=== PATIENT | male | born 1990 | race Caucasian/White ===

== ENCOUNTER 2019-02-28 13:56 | Inpatient (IN) ==
--- OUTSIDE RECORDS SUMMARY | 2019-02-28 14:00 | External Medical Summary | Continuity of Care Document ---
:1990 Author Name Darya Guerrero, Provider Address Unavailable Unavailable , Care Team Providers Name Role Phone Unavailable Unavailable Unavailable ADITI Guerrero, ERIKA Chiu Unavailable Unavailable Problems Active medical history not documented Allergies and Adverse Reactions Allergy history not documented Medications Medications not documented Procedures Procedures not documented Immunizations Immunizations not documented Plan of Treatment Planned Observations Planned Goals not documented Results No Known Results Results not documented
[2019-02-28] MEDS ORDERED: HALOPERIDOL 5 MG TAB PO STA (14:41)
[2019-02-28] MEDS ORDERED: LORazepam 1 MG TAB PO STA (14:41)
[2019-02-28] MEDS ORDERED: LORazepam 2 MG/4 ML VIAL ONE (15:10)
[2019-02-28] MEDS ORDERED: HALOPERIDOL LACTATE 5 MG/ML 1 ML VIAL ONE (15:10)
[2019-02-28] MEDS ORDERED: LORazepam 2 MG/ML VIAL (IM USE) IM STA (15:11)
[2019-02-28] MEDS ORDERED: HALOPERIDOL LACTATE 5 MG/ML 1 ML VIAL IM STA (15:11)
[2019-02-28 15:23] LABS: Basophils # (auto) 0.05 K/uL (0-0.2); Basophils % (auto) 0.4 %; Eosinophils # (auto) 0.21 K/uL (0-0.5); Eosinophils % (auto) 1.6 %; Hematocrit (blood only) 48.6 % (42-52); Hemoglobin 17.6 g/dL (14.0-18.0); Immature Granulocytes # (auto) 0.04 K/uL (0.00-0.02); Immature Granulocytes % (auto) 0.3 %; Lymphocytes # (auto) 3.07 K/uL (1.2-3.4); Lymphocytes % (auto) 24.1 %; Mean Corpuscular Hgb Conc 36.2 g/dL (32-36); Mean Corpuscular Volume 83.8 fL (80-100); Mean Platelet Volume 11.3 fL (7.4-10.4); Monocytes # (auto) 0.74 K/uL (0.11-0.59); Monocytes % (auto) 5.8 %; Neutrophils # (auto) 8.65 K/uL (1.4-6.5); Neutrophils % (auto) 67.8 %; Platelet Count 297 K/uL (130-400); RDW Coefficient of Variation 14.3 % (11.5-14.5); RDW Standard Deviation 43.8 fL (36.4-46.3); White Blood Count 12.76 K/uL (4.8-10.8)
[2019-02-28 15:39] LABS: Appearance Urine Clear (Clear); Bacteria Urine Automated Negative (Negative); Bilirubin Urine Negative (Negative); Blood Urine Negative (Negative); Cast Urine Automated 0 /lpf (0-5); Color Urine Yellow; Glucose Urine UA Negative (Negative); Ketones Urine Negative (Negative); Leukocyte Esterase Urine Trace (Negative); Nitrite Urine Negative (Negative); Protein Urine Negative (Negative); RBC Urine Automated 0-4 /hpf (0-4); Specific Gravity Urine 1.016 (1.000-1.030); Urobilinogen Urine Negative (Negative); pH Urine 5.5 (4.5-7.5)
[2019-02-28 15:46] LABS: BUN Creatinine Ratio 6.3 (10-20); Calcium 8.8 mg/dl (8.5-10.1); Creatinine Clr Calc Pharmacy 169.5 ml/min; Est GFR (African American) 130.7; Est GFR (Non-African American) 112.8; Potassium 3.5 mmol/L (3.5-5.1)
[2019-02-28 15:47] LABS: Acetaminophen < 2 ug/ml (10-30); Salicylate 3.2 mg/dl (2.8-20)
[2019-02-28 15:51] LABS: Amphetamines+Metham, Urine Neg (Neg); Barbiturates, Urine Neg (Neg); Benzodiazepine, Urine Neg (Neg); Cocaine, Urine Neg (Neg); MDMA (Ecstacy), Urine Neg (Neg); Methadone, Urine Neg (Neg); Opiate, Urine Neg (Neg); Phencyclidine, Urine Neg (Neg)
[2019-02-28 15:58] LABS: Albumin Globulin Ratio 0.9 (0.9-2); Bilirubin,Total 0.4 mg/dl (0.2-1); Globulin 4.3 gm/dl (2.5-4.0); Total Protein 8.3 gm/dl (6.4-8.2)
[2019-02-28] MEDS ORDERED: DIPHTHERIA/TETANUS/PERTUSSIS 0.5 ML SYR/VIAL IM ONE (20:37)
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
--- NOTE | 2019-02-28 23:34 | Emergency Department Note ---
ED Visit Note This case was signed out to me at change of shift. The patient is currently sleeping. When he does wake up, a formal psychiatric evaluation will be performed. The patient is now awake and willing to sign himself in voluntarily. The ED psychiatric disability case manager has met with him. A referral has been made to [facility]. They have no beds available. 0425: The disability case manager has made multiple phone calls looking for an open bed but has been unsuccessful. 0515: The patient has become more agitated. I have ordered a nicotine patch along with 2 mg of sublingual Ativan. 0610: The patient is much more relaxed at this time. The case will be signed out to Dr. Guan at change of shift awaiting bed placement. . : Wrist laceration Qualifiers: Encounter type: initial encounter Laterality: left Qualified Code(s): S61.512A - Laceration without foreign body of left wrist, initial encounter Psychotic disorder Qualifiers: Psychosis type: unspecified psychosis type Qualified Code(s): F29 - Unspecified psychosis not due to a substance or known physiological condition
[2019-03-01] MEDS ORDERED: LORazepam 1 MG TAB ONE (05:12)
[2019-03-01] MEDS ORDERED: NICOTINE 21 MG/24 HR TDSY TD ONE (05:13)
[2019-03-01] MEDS ORDERED: LORazepam 1 MG TAB PO STA ×2 (05:34→11:10)
[2019-03-01] MEDS ORDERED: NICOTINE 21 MG/24 HR TDSY TD SCH (09:00)
--- NOTE | 2019-03-01 14:38 | Emergency Department Note ---
ED Visit Note This patient was signed out to me by Dr. Berman at shift change. He had come in and was here all night after cutting his wrist as a suicidal attempt. he was initially agitated but has been very cooperative is 201 at this point. He did receive some additional Ativan. I when I evaluated him he is always been very cooperative. I talked to him multiple times in the ER. He was starting to get a little anxious again and was given another milligram Ativan. I talked to him at length and and told him that I think that it would be beneficial for him have inpatient treatment and he agrees with this and is willing to come in voluntarily to [facility]. . : Wrist laceration Qualifiers: Encounter type: initial encounter Laterality: left Qualified Code(s): S61.512A - Laceration without foreign body of left wrist, initial encounter Psychotic disorder Qualifiers: Psychosis type: unspecified psychosis type Qualified Code(s): F29 - Unspecified psychosis not due to a substance or known physiological condition
[2019-03-01] MEDS ORDERED: BISMUTH SUBSALICYLATE PER ML OMNICELL CHARGE PO PRN (14:43)
[2019-03-01] MEDS ORDERED: ACETAMINOPHEN 325 MG TAB PO PRN (14:43)
[2019-03-01] MEDS ORDERED: MAGNESIUM HYDROXIDE SUSP 30 ML UDC PO PRN (14:43)
[2019-03-01] MEDS ORDERED: ALUMINUM/MAGNESIUM SUSP 30 ML UDC PO PRN (14:43)
[2019-03-01] MEDS ORDERED: SODIUM CHLORIDE 0.65% NA SOLN 45 ML (OCEAN) PRN (14:43)
[2019-03-01] MEDS ORDERED: LORazepam 1 MG TAB PO PRN (14:43)
[2019-03-01] MEDS ORDERED: HALOPERIDOL LACTATE 5 MG/ML 1 ML VIAL IM PRN (17:01)
[2019-03-01] MEDS ORDERED: GABAPENTIN 1200MG ALCOHOL WITHDRAWAL LOAD PO STA (17:02)
[2019-03-01] MEDS ORDERED: GABAPENTIN 600 MG TAB PO SCH (18:00)
[2019-03-01] MEDS: NICOTINE POLACRILEX 2 MG GUM MT PRN (20:34)
[2019-03-01] MEDS: GABAPENTIN 600 MG TAB PO SCH (23:59)
[2019-03-02] MEDS: GABAPENTIN 600 MG TAB PO SCH ×3 (06:13→21:30)
[2019-03-02] MEDS ORDERED: NICOTINE 21 MG/24 HR TDSY TD SCH (09:00)
[2019-03-02] MEDS: NICOTINE 21 MG/24 HR TDSY TD SCH (09:07)
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
[2019-03-02] MEDS ORDERED: LORazepam 1 MG TAB PO PRN (09:09)
[2019-03-02] MEDS: HALOPERIDOL 5 MG TAB PO PRN ×2 (09:10→19:40)
[2019-03-02] MEDS: NICOTINE POLACRILEX 2 MG GUM MT PRN ×2 (19:09→21:33)
[2019-03-03] MEDS: GABAPENTIN 600 MG TAB PO SCH ×2 (05:15→18:17)
[2019-03-03] MEDS: NICOTINE 21 MG/24 HR TDSY TD SCH (09:06)
[2019-03-03] MEDS: NICOTINE POLACRILEX 2 MG GUM MT PRN ×3 (09:09→18:20)
--- NOTE | 2019-03-03 10:45 | Psychiatric Progress Note ---
Date of Service March 03, 2019 Impression / Recommendations Impression 29-year-old male with polysubstance abuse, alcohol dependence currently in alcohol withdrawal, and a history of depression and ADHD who presented to the ER 02/28/2019 after a suicide attempt by cutting his wrist. He endorses very heavy alcohol use, 16+ alcoholic beverages daily, and although he initially did not want to address his drinking, is now reading the recovery workbook and is thinking about trying to cut back. He also reports chronic problems with agitation and violent behavior, regular marijuana use, and recent methamphetamine use. He is prescribed multiple controlled substances including Adderall and zolpidem, which have been discontinued here due to his addictions issues. Although mood has improved from admission, he remains at risk for suicide if discharged prematurely given his numerous unresolved risk factors, including depression, alcoholism, need for outpatient treatment, involvement of his supports, and a plan for safety after discharge. (1) Suicidal thoughts: 03/02 -Ongoing for the last several years, exacerbated in last several months, multiple failed attempts within last 5 months - suicide precautions in place. -Continue inpatient treatment on a 201 voluntary commitment. There is a backup 302 petition if needed. -Suicide checks for safety. -Encourage group attendance and participation, work on healthy coping skills and discharge safety plan. Present on Admission?: Yes (2) Wrist laceration: -Keep area clean and dry. Use bacitracin as needed. Present on Admission?: Yes (3) Depression: 03/02 - Differential diagnoses: major depressive disorder, bipolar disor colby, psychosis in setting of substance abuse, alcohol abuse vs. alcohol withdrawal, primary psychosis, personality disorder Unable to clearly determine diagnosis as symptoms may or may not be related with substance use - will continue to monitor and attempt to delineate symptoms as patient is further removed from substance use, and manage symptoms as below. Collateral information from friends or family would be helpful as patient is a limited historian, and outpatient records from Dr. Nguyen. 03/03 -outpatient records indicate previous history of major depressive disorder, and today patient reports he has been depressed, and thinks that his drinking is both triggered by depression and also worsens mood. Psychoeducation provided regarding the relationship between alcohol abuse and mood disorders. Although outpatient records indicate he was prescribed oxcarbazepine (for depression?, although it is a mood stabilizer), he states he never picked it up or took the medication as he lost his insurance and could not afford it. -Reviewed ways to optimize mood, including good nutrition, adequate sleep, therapy, and sobriety, as patient notes his mood is better now than it has been in a long time as he has been attending to these things. As mood has improved significantly after just a few days sober, I think it is likely that he has a substance-induced depression, and it is not clear that antidepressant medication is indicated at this time. -Records reviewed from outpatient psychiatrist Dr. Nguyen. Contacted his office to coordinate care and inform him of patient's significant substance abuse, as he has prescribed controlled substances. Spoke with his staff and left him a detailed message regarding concerns about the patient. Present on Admission?: Yes (4) Alcohol abuse: Heavy, daily alcohol use - continue AWSS protocol with gabapentin taper and lorazepam as needed for withdrawal symptoms. Patient contemplative and thinks he would like to stop drinking - would benefit from EtOH rehab post discharge. Brief intervention was offered and accepted Brief interventions include: 1. Assess Readiness to Quit, 2. Advise: Help Patient to Reduce or Abstain from Alcohol, 3. Agree: Set Specific, Feasible Goals, 4. Assist: Anticipate barriers, Problem-Solving Solutions. Social work to 5. Arrange: Referrals to appropriate treatment. Summary of intervention: The patient is in precontemplation stage with regards to transtheoretical model of change. The patient is advised to decrease alcohol consumption due to depressant effects and risk of interactions with prescription medications. The patient agreed to consider options for substance abuse treatment, and will be provided with recovery materials to continue to education self on how to cope with their condition without drinking. 03/03 -patient is reading the recovery workbook and considering his options to cut back on alcohol. Again reviewed the recommendations for inpatient rehab, which would give him a better chance of maintaining sobriety, but he is not willing. Present on Admission?: Yes (5) Alcohol withdrawal: 03/03 -continue AWSS protocol with gabapentin taper. Patient required 1 mg of lorazepam the past 2 days, and withdrawal symptoms are improving. Present on Admission?: Yes (6) Polysubstance abuse: Use of tobacco and alcohol daily; marijuana use frequently; intranasal use of methamphetamines x 4-5 times in the past several weeks; remote use of cocaine, acid, and mushrooms. -Continue to provide psychoeducation about the risks of ongoing substance use and recommendations for abstinence. Would not prescribe controlled substances given the high risk of abuse/misuse/negative outcomes. Present on Admission?: Yes (7) Tobacco abuse: Continue nicotine patch Present on Admission?: Yes (8) Anger: 03/03 -patient reports a long history of anger outbursts and violence, which does not appear to be occurring in the context of a primary mood or thought disorder. -He reports some benefit from haloperidol 5 mg as needed for agitation, so will continue. Present on Admission?: Yes Inventory Assets Strengths: Willing for treatment, employed Needs: Rehab to address severe substance abuse Risk Factors Assessment Male: Yes : No Mental Health Diagnoses: Yes Substance Use Disorders: Yes Previous Attempt: Yes Previous Attempt; Didn't Tell Anyone: Yes Family History of Suicide: No Previous Psychiatric Hospitalization: No Hopelessness: Yes Smoker: Yes Protective Factors Assessment : No Responsible for Young Children: No Employed: Yes ([employer]) Stable Relationships: No Supportive Family: No Good Rapport with Provider: No Interval History Identifying Information MARTHA MARROQUIN is a 29-year-old M who currently lives in [place] with roommates, has a self-reported history of ADHD, anxiety, depression, polysubstance abuse, "sleeping trouble", and previous suicide attempts, and was admitted on 03/01/19 14:43 on a 201 voluntary commitment for suicidal ideation. Chief Complaint "Good". Review of Systems Sleep Information Total Hours of Sleep: 6.5 Sleep Comments: awoke by staff at 0000 and 0600 for medications. Meal Information Percent Meal Consumed - Breakfast: 100 Percent Meal Consumed - Lunch: 100 Percent Meal Consumed - Dinner: 100 Subjective Subjective Patient was seen & assessed and interval progress reviewed with Treatment Team. Staff report he has attended some groups, where he talked about how much he likes to drink alcohol. He got 1mg lorazepam 03/01 and another 1mg on 03/02 for alcohol withdrawal, hydroxyzine for anxiety, and haloperidol 5mg for agitation. He told staff he was having urges to fight and told them to either call security or give him medication. He went to his room and was pacing and punching the wall (lightly per nursing staff). He reported feeling anxious and nervous in community meeting, and said he was "completely focused on alcohol." Today he was seen with Dr. Tereza Huff. He reports mood is "a lot better" this morning, although he was "really having cravings" last evening and had suicidal thoughts at that time. He is unsure whether he wants to try to address his drinking, but states he is reading the recovery book and thinking about it. He thinks it would be good for him to throw away the empty "trophy" bottles at home as well as the alcohol he has, and talked to his girlfriend who supports that, saying she also wants to stop drinking. He remains unwilling for rehab at this time. Mood is "it doesn't feel good, I feel like drinking, and I'm sad that I can't do it any more, I don't know how else I'm gonna deal with depression." He identifies the evenings as the most difficult time of the day for him, as he has strong urges to drink and gets angry. He is able to list the cons of drinking, including worsening mood, cost, not feeling well physically. He doesn't think he needs substance abuse treatment, stating "I don't think talking helps me, I just need to do it myself." He says he is "nervous about leaving, don't think I'm gonna do good when I leave here...I have a challenge when I leave here, I have full bottles of alcohol and have to make a decision about throwing them out, and that's gonna be hard for me. There's two bottles waiting for me when I go home. That's the only thing my mind is focused on right now." Summary of Past History Records from Dr. Nguyen received and reviewed: Initial evaluation performed 02/18/2019, 4 mood disorder and ADHD. Patient reported difficulty with concentration, organization, attention to details, restlessness, fidgeting, difficulty playing quietly, frequently climbing or jumping, impulsivity, reckless behavior, daydreaming, losing track of time, and not completing homework. He also endorsed anger problems, with verbal and physical aggression on a daily basis, lasting minutes. He reported several weeks of elevated mood, agitation, distractibility, high energy, insomnia, increased libido, and increased self-esteem. He denied substance abuse, any history of arrests or incarcerations, and denied any past psychiatric treatment. He reported living in an assisted living facility. On exam, he appeared depressed. 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 Physical Exam Mental Examination Large, overweight male, casually dressed, with adequate hygiene and grooming. Multiple tattoos on upper extremities. Seated in no acute distress, with fair eye contact and no abnormal movements. Calm and cooperative with the interview. Mood is "better," and affect is blunted and incongruent. Speech is spontaneous, normal rate, volume, and tone. Thoughts are goal-directed. Denies SI, HI, hallucinations, and paranoia. No delusions are evident. Alert and oriented. Memory, attention, and language are intact per interview. Insight and judgment are impaired. Vital Signs (Past 24 Hours) Last Vital Signs Temp 36.5 C 03/03/19 10:21 Pulse 65 03/03/19 10:21 Resp 18 03/03/19 10:21 BP 132/86 03/03/19 10:21 Pulse Ox 100 03/01/19 14:19 Results & Data Laboratory Results Laboratory Results - last 24 hr 02/28/19 03/03/19 14:30 Unknown Nasal Screen MRSA (PCR) Pending U Marijuana THC Carboxy 79 A Current Inpatient Medications Current Inpatient Medications: Current Inpatient Medications Acetaminophen (Tylenol) 650 mg PO Q4H PRN PRN Reason: Headache or Minor Fever Stop: 03/31/19 14:42 Al Hydrox/Mg Hydrox/Simethicone (Maalox) 30 ml PO Q4H PRN PRN Reason: GI Upset Stop: 03/31/19 14:42 Bismuth Subsalicylate (Kaopectate) 15 ml PO PRN PRN PRN Reason: Loose Stool Stop: 03/31/19 14:42 Gabapentin (Neurontin) 600 mg PO Q12H ESVIN Stop: 03/04/19 06:01 Gabapentin (Neurontin) 600 mg PO Q24H ESVIN Stop: 03/05/19 06:01 Haloperidol (Haldol) 5 mg PO Q4H PRN PRN Reason: Agitation Stop: 03/31/19 16:59 Last Admin: 03/02/19 19:40 Dose: 5 mg Documented by: Haloperidol Lactate (Haldol) 5 mg IM Q4H PRN PRN Reason: Agitation Stop: 03/31/19 17:00 Hydroxyzine HCl (Vistaril) 50 mg PO HSZ PRN PRN Reason: Insomnia Stop: 03/31/19 14:42 Last Admin: 03/02/19 21:28 Dose: 50 mg Documented by: Hydroxyzine HCl (Vistaril) 25 mg PO Q4H PRN PRN Reason: Anxiety Stop: 03/31/19 14:42 Last Admin: 03/02/19 20:07 Dose: 25 mg Documented by: Lorazepam (Ativan) 1 - 3 mg PO UD PRN; Protocol PRN Reason: EtoH Withdrawal AWSS 6-10+ Stop: 04/01/19 09:08 Magnesium Hydroxide (Milk Of Magnesia) 30 ml PO DAILY PRN PRN Reason: Heartburn Stop: 03/31/19 14:42 Miscellaneous (Remove Nicoderm Patch) 1 ea N/A HS ESVIN Stop: 04/01/19 20:59 Last Admin: 03/02/19 19:10 Dose: 1 ea Documented by: Nicotine (Nicoderm Cq) 21 mg TD QAM ESVIN Stop: 04/01/19 08:59 Last Admin: 03/03/19 09:06 Dose: 21 mg Documented by: Nicotine Polacrilex (Nicorette 2mg) 1 piece MT UD PRN PRN Reason: Nicotine Withdrawal Stop: 03/31/19 14:42 Last Admin: 03/03/19 09:09 Dose: 1 piece Documented by: Sodium Chloride ([place] Nasal) 1 - 2 sprays NA PRN PRN PRN Reason: Nasal Dryness/Congestion Stop: 03/31/19 14:42 Post Discharge Appointments Primary Care Physician Name Of Family Doctor: none Therapist Name of Therapist: None Quality Control Lab Tech Name of Quality Control Lab Tech: None CPT Code CPT Code 39709 (1) Depression Depression Type: unspecified Qualified Code(s): F32.9 - Major depressive disorder, single episode, unspecified (2) Wrist laceration Encounter type: initial encounter Laterality: left Qualified Code(s): S61.512A - Laceration without foreign body of left wrist, initial encounter
[2019-03-03] MEDS: HALOPERIDOL 5 MG TAB PO PRN (18:17)
[2019-03-04] MEDS: GABAPENTIN 600 MG TAB PO SCH (06:05)
[2019-03-04] MEDS: NICOTINE 21 MG/24 HR TDSY TD SCH (08:59)
--- NOTE | 2019-03-04 11:32 | Psychiatric Progress Note ---
Date of Service March 04, 2019 Impression / Recommendations Impression 29-year-old male with polysubstance abuse, alcohol dependence currently in alcohol withdrawal, and a history of depression and ADHD who presented to the ER 02/28/2019 after a suicide attempt by cutting his wrist. He endorses very heavy alcohol use, 16+ alcoholic beverages daily, and although he initially did not want to address his drinking, is now reading the recovery workbook and is thinking about trying to cut back. He also reports chronic problems with agitation and violent behavior, regular marijuana use, and recent methamphetamine use. He is prescribed multiple controlled substances including Adderall and zolpidem, which have been discontinued here due to his addictions issues. Although mood has improved from admission, he remains at risk for suicide if discharged prematurely given his numerous unresolved risk factors, including depression, alcoholism, need for outpatient treatment, involvement of his supports, and a plan for safety after discharge. (1) Suicidal thoughts: 03/02 -Ongoing for the last several years, exacerbated in last several months, multiple failed attempts within last 5 months - suicide precautions in place. -Continue inpatient treatment on a 201 voluntary commitment. There is a backup 302 petition if needed. -Suicide checks for safety. -Encourage group attendance and participation, work on healthy coping skills and discharge safety plan. 03/04 - SI not clearly present, though patient is struggling emotionally with aftercare plans and desire for a drink - given anger and impulsivity, he is at ongoing high risk of harm to self (2) Wrist laceration: -Keep area clean and dry. Use bacitracin as needed. (3) Depression: 03/02 - Differential diagnoses: major depressive disorder, bipolar disorder, psychosis in setting of substance abuse, alcohol abuse vs. alcohol withdrawal, primary psychosis, personality disorder Unable to clearly determine diagnosis as symptoms may or may not be related with substance use - will continue to monitor and attempt to delineate symptoms as patient is further removed from substance use, and manage symptoms as below. Collateral information from friends or family would be helpful as patient is a limited historian, and outpatient records from Dr. Nguyen. 03/03 -outpatient records indicate previous history of major depressive disorder, and today patient reports he has been depressed, and thinks that his drinking is both triggered by depression and also worsens mood. Psychoeducation provided regarding the relationship between alcohol abuse and mood disorders. Although outpatient records indicate he was prescribed oxcarbazepine (for depression?, although it is a mood stabilizer), he states he never picked it up or took the medication as he lost his insurance and could not afford it. -Reviewed ways to optimize mood, including good nutrition, adequate sleep, therapy, and sobriety, as patient notes his mood is better now than it has been in a long time as he has been attending to these things. As mood has improved significantly after just a few days sober, I think it is likely that he has a substance-induced depression, and it is not clear that antidepressant medication is indicated at this time. -Records reviewed from outpatient psychiatrist Dr. Nguyen. Contacted his office to coordinate care and inform him of patient's significant substance abuse, as he has prescribed controlled substances. Spoke with his staff and left him a detailed message regarding concerns about the patient. 03/04 - Continue off medications, as not clearly indicated for treatment of current working diagnoses (4) Alcohol abuse: Heavy, daily alcohol use - continue AWSS protocol with gabapentin taper and lorazepam as needed for withdrawal symptoms. Patient contemplative and thinks he would like to stop drinking - would benefit from EtOH rehab post discharge. Brief intervention was offered and accepted Brief interventions include: 1. Assess Readiness to Quit, 2. Advise: Help Patient to Reduce or Abstain from Alcohol, 3. Agree: Set Specific, Feasible Goa ls, 4. Assist: Anticipate barriers, Problem-Solving Solutions. Social work to 5. Arrange: Referrals to appropriate treatment. Summary of intervention: The patient is in precontemplation stage with regards to transtheoretical model of change. The patient is advised to decrease alcohol consumption due to depressant effects and risk of interactions with prescription medications. The patient agreed to consider options for substance abuse treatment, and will be provided with recovery materials to continue to education self on how to cope with their condition without drinking. 03/03 -patient is reading the recovery workbook and considering his options to cut back on alcohol. Again reviewed the recommendations for inpatient rehab, which would give him a better chance of maintaining sobriety, but he is not willing. 03/04 - Considering inpatient D&A rehab, though is concern about the financial impact of taking time off work. Is willing to allow social work to look into options, possible county subsidies. (5) Alcohol withdrawal: 03/03 -continue AWSS protocol with gabapentin taper. Patient required 1 mg of lorazepam the past 2 days, and withdrawal symptoms are improving. 03/04 - AWSS protocol discontinued as patient has not scored in the last 24-hours (6) Polysubstance abuse: Use of tobacco and alcohol daily; marijuana use frequently; intranasal use of methamphetamines x 4-5 times in the past several weeks; remote use of cocaine, acid, and mushrooms. -Continue to provide psychoeducation about the risks of ongoing substance use and recommendations for abstinence. Would not prescribe controlled substances given the high risk of abuse/misuse/negative outcomes. (7) Tobacco abuse: Continue nicotine patch (8) Anger: 03/03 -patient reports a long history of anger outbursts and violence, which does not appear to be occurring in the context of a primary mood or thought disorder. -He reports some benefit from haloperidol 5 mg as needed for agitation, so will continue. 03/04 - Finding Haldol beneficial, though he has been reduced in frequency of requesting prn since admission Inventory Assets Strengths: Willing for treatment, employed Needs: Rehab to address severe substance abuse Risk Factors Assessment Male: Yes : No Mental Health Diagnoses: Yes Substance Use Disorders: Yes Previous Attempt: Yes Previous Attempt; Didn't Tell Anyone: Yes Family History of Suicide: No Previous Psychiatric Hospitalization: No Hopelessness: Yes Smoker: Yes Protective Factors Assessment : No Responsible for Young Children: No Employed: Yes ([employer]) Stable Relationships: No Supportive Family: No Good Rapport with Provider: No Interval History Identifying Information MARTHA MARROQUIN is a 29-year-old M who currently lives in [place] with roommates, has a self-reported history of ADHD, anxiety, depression, polysubstance abuse, "sleeping trouble", and previous suicide attempts, and was admitted on 03/01/19 14:43 on a 201 voluntary commitment for suicidal ideation. Chief Complaint "Um, I don't know. I'm struggling." Review of Systems Notes Constitutional: reports restlessness believed to be related to anxiety Cardiovascular: denied Respiratory: denied Gastrointestinal: denied Neurological: denied Psychiatric: denies symptoms other than stated above Total of at least 10 systems reviewed, pertinent positives as above and in HPI. Sleep Information Total Hours of Sleep: 6.75 Sleep Comments: awoke by staff at 0000 and 0600 for medications. Meal Information Percent Meal Consumed - Breakfast: 100 Percent Meal Consumed - Lunch: 100 Percent Meal Consumed - Dinner: 100 Subjective Subjective Patient was seen & assessed and interval progress reviewed with Nursing. Staff reports the patient continues to be motivated to work on his recovery protocol. He continues to be undecided about whether or not he is interested in inpatient drug and alcohol rehabilitation at time of discharge. He continues to state he is not interested in having a family meeting involving his girlfriend, his only known outpatient support. Patient was seen today to assess progress since admission. Patient has been processing various stressors with nursing staff, which segued into an evaluation with this provider. Patient states that he has been struggling with his urges to drink alcohol here on the unit. He shares with this provider that the evenings in the early mornings are generally the times that he most desires a drink. Patient states that these urges because anxiety as he is motivated to abstain from substances; however, is unsure that he has the strength to be able to do this in the outpatient setting. Patient did verbalize that he would be willing for rehab, but is concerned about finances with being unable to work during his treatment and the need to continue to keep up on rent payments. Patient was agreeable to allowing staff to gather information regarding rehab referrals, and the county's willingness to subsidize his stay. Patient shares with this provider that he is uncomfortable in his living situation, merely coexisting with his 2 roommates. He states it is not an environment that would support sobriety; however, he is not sure that he has other housing options at this time. Patient states he is concerned about the idea of jumping his alcohol down the drain as "either I won't be strong enough to get rid of the alcohol on my own, or I will be so upset that I did it that I will become more suicidal." Patient states he had a nightmare last evening related to the of a very close friend "due to drug money". He states a lot of his dreams have the same and are distressing to him. This in combination with his alcohol urges has caused him to have difficulty sleeping. He does, however, states that he has gotten more sleep during this hospitalization than he has in months. He denies other specific needs or concerns at this time. Physical Exam Psychiatric Orientation: alert, oriented x 3 and cooperative Apperance: appropriately dressed and appropriately groomed Eye Contact: + fair eye contact (At times including face and hands, or staring at floor) Motor Behavior: steady gait and station and no abnormal motor movements Speech: normal rate/rhythm/volume of speech (Monotone) Affect: + anxious affect (When discussing rehab and financial concern) and + flat affect Mood: + anxious mood (Especially related to after care decisions and substance use urges) Thought Process: goal directed thought process and clear/coherent thought process Thought Content: + preoccupation (At times with urge to drink, reported complaint during this evaluation) and reality based without delusions Suicidal Thoughts: denies suicidal thoughts Denies active thoughts; however, struggling to make some major decisions that are likely to worsen SI Homicidal Thoughts: denies homicidal thoughts Hallucinations: no auditory hallucinations and no visual hallucinations Cognition: attention grossly intact and language grossly intact Estimated Intelligence: consistent with education level Insight: + fair insight (But continues to put up roadblocks preventing him from understanding the extent of his condition) Judgement: + impaired judgement Vital Signs (Past 24 Hours) Last Vital Signs Temp 36.6 C 03/04/19 06:45 Pulse 74 03/04/19 06:46 Resp 18 03/04/19 06:45 BP 118/72 03/04/19 06:46 Pulse Ox 100 03/01/19 14:19 Results & Data Laboratory Results Laboratory Results - last 24 hr 03/03/19 Unknown Nasal Screen MRSA (PCR) Negative Current Inpatient Medications Current Inpatient Medications: Current Inpatient Medications Acetaminophen (Tylenol) 650 mg PO Q4H PRN PRN Reason: Headache or Minor Fever Stop: 03/31/19 14:42 Al Hydrox/Mg Hydrox/Simethicone (Maalox) 30 ml PO Q4H PRN PRN Reason: GI Upset Stop: 03/31/19 14:42 Bismuth Subsalicylate (Kaopectate) 15 ml PO PRN PRN PRN Reason: Loose Stool Stop: 03/31/19 14:42 Gabapentin (Neurontin) 600 mg PO Q24H ESVIN Stop: 03/05/19 06:01 Haloperidol (Haldol) 5 mg PO Q4H PRN PRN Reason: Agitation Stop: 03/31/19 16:59 Last Admin: 03/03/19 18:17 Dose: 5 mg Documented by: Haloperidol Lactate (Haldol) 5 mg IM Q4H PRN PRN Reason: Agitation Stop: 03/31/19 17:00 Hydroxyzine HCl (Vistaril) 50 mg PO HSZ PRN PRN Reason: Insomnia Stop: 03/31/19 14:42 Last Admin: 03/03/19 22:09 Dose: 50 mg Documented by: Hydroxyzine HCl (Vistaril) 25 mg PO Q4H PRN PRN Reason: Anxiety Stop: 03/31/19 14:42 Last Admin: 03/02/19 20:07 Dose: 25 mg Documented by: Lorazepam (Ativan) 1 - 3 mg PO UD PRN; Protocol PRN Reason: EtoH Withdrawal AWSS 6-10+ Stop: 04/01/19 09:08 Magnesium Hydroxide (Milk Of Magnesia) 30 ml PO DAILY PRN PRN Reason: Heartburn Stop: 03/31/19 14:42 Miscellaneous (Remove Nicoderm Patch) 1 ea N/A HS SEVIN Stop: 04/01/19 20:59 Last Admin: 03/03/19 22:14 Dose: 1 ea Documented by: Nicotine (Nicoderm Cq) 21 mg TD QAM ESVIN Stop: 04/01/19 08:59 Last Admin: 03/04/19 08:59 Dose: 21 mg Documented by: Nicotine Polacrilex (Nicorette 2mg) 1 piece MT UD PRN PRN Reason: Nicotine Withdrawal Stop: 03/31/19 14:42 Last Admin: 03/03/19 18:20 Dose: 1 piece Documented by: Sodium Chloride ([place] Nasal) 1 - 2 sprays NA PRN PRN PRN Reason: Nasal Dryness/Congestion Stop: 03/31/19 14:42 Post Discharge Appointments Primary Care Physician Name Of Family Doctor: none Psychiatrist Name of Psychiatrist: Dr. Nguyen Psychiatrist's Date of Appointment with Psychiatrist: 03/22/19 Time of Appointment with Psychiatrist: 4:10pm Therapist Name of Therapist: None Facility Service Associate Name of Facility Service Associate: None CPT Code CPT Code 37947 (1) Depression Depression Type: unspecified Qualified Code(s): F32.9 - Major depressive disorder, single episode, unspecified (2) Wrist laceration Encounter type: initial encounter Laterality: left Qualified Code(s): S61.5 12A - Laceration without foreign body of left wrist, initial encounter
[2019-03-04] MEDS: NICOTINE POLACRILEX 2 MG GUM MT PRN ×2 (13:03→17:51)
[2019-03-04] MEDS: HALOPERIDOL 5 MG TAB PO PRN (20:32)
[2019-03-05] MEDS ORDERED: GABAPENTIN 600 MG TAB PO SCH (06:00)
[2019-03-05] MEDS: NICOTINE 21 MG/24 HR TDSY TD SCH (08:49)
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
[2019-03-05] MEDS: NICOTINE POLACRILEX 2 MG GUM MT PRN (13:03)
--- NOTE | 2019-03-05 15:36 | Discharge Summary ---
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 None Digital Marketing Manager Name of Digital Marketing Manager: None Smoking Cessation Counseling Tobacco Cessation Medication Prescribed at Discharge: Offered & Pt Refused Discharge Plan Discharge Items Patient Disposition: Transfer Inpatient Rehab Fac Reason For Visit: DEPRESSION Discharge Diagnosis: Depression, NOS Discharge Goals: Improve disease control, Improve function and Learn about illness Activity: Resume your previous activity Non-emergency contact: Specialist and Therapist Call non-emergency contact if: you have any medication questions and your symptoms worsen Follow-up/Referrals: PCP,NO [Primary Care Provider] - Diet: Regular Addtl Provider Instructions: Remember that the treatment team on the behavioral health unit believes that she will have a great number of strengths, including resilience, intelligence, a sense of humor, good social skills, and healthy determination. Keep this in mind when self-doubts and feelings of inadequacy begin to emerge. Prescriptions: No Action No Known Home Medications RF: 0 Stand-Alone Forms: [facility] Discharge Orders: Discharge Order (Routine); Ordered 03/05/19 Ordered By: Yaw Palma Skilled Items Patient informed of condition?: Yes DNR: No Discharge Level of Care: Acute rehab Communicable Disease: No Discharge Prognosis: Improving Admission Data Admit Date/Time: 03/01/19 14:43 Attending Provider: Eileen Cisneros Admit Provider: Yaw Palma Primary Care Provider: PCP,NO Service: Psychiatry Other Interventions: PSY Interdisciplinary Discharge Planning Last Done: 03/05/19 15:33 Pending Studies at Discharge: No
== END 2019-03-05 16:30 | disposition alcohol treatment (31) | DRG 881 ==
LOC: ED 13:56 → 3S 03-01 14:43